=== PATIENT | female | born 1985 | race African-American/Black ===

== ENCOUNTER 2019-05-16 12:06 | Day surgery (SDC) | payer BC ==
[2019-05-15 08:47] VITALS: BMI 21.9
[2019-05-16] MEDS ORDERED: PROPOFOL 20 ML ONE (14:30)
[2019-05-16] MEDS ORDERED: ROCURONIUM BROMIDE 50 MG/5 ML SYRINGE ONE (14:30)
[2019-05-16] MEDS ORDERED: MIDAZOLAM HCL 2 MG/2 ML SINGLE DOSE VIAL ONE (14:30)
--- NOTE | 2019-05-16 14:34 | HP ---
History & Physical Update - History History: No Change - Physical Physical: No Change - Assessment Assessment: No Change - Plan Plan: No Change (Laparoscopic bilateral salpingectomy)
[2019-05-16] MEDS ORDERED: ceFAZolin SODIUM 1 GM VIAL IVPB ONE (14:50)
[2019-05-16] MEDS ORDERED: PROMETHAZINE HCL 25 MG/1 ML VIAL IVPB PRN (14:51)
[2019-05-16] MEDS ORDERED: oxyCODONE HCL 5 MG TABLET PO PRN (14:51)
[2019-05-16] MEDS ORDERED: ONDANSETRON 4 MG/2 ML VIAL IVPUSH PRN (14:51)
[2019-05-16] MEDS ORDERED: BUPIVACAINE HCL/PF 0.5% (5 MG/ML) 30 ML VIAL IJ ONE (14:59)
[2019-05-16] MEDS ORDERED: NEOSTIGMINE METHYLSULFATE 0.5 MG/ML - 10 ML MDV ONE (15:28)
--- NOTE | 2019-05-16 15:30 | PN ---
Progress Note (short form) - Note Progress Note: I assisted Dr. Cuba for the entirety of the case.
--- NOTE | 2019-05-16 15:48 | OP ---
Operative Note - Note: Operative Date: 05/16/19 Pre-Operative Diagnosis: Encounter for starilization Findings: Laparoscopic bilateral salpingectomy Post-Operative Diagnosis: Same as Pre-op Surgeon: Froilan Cuba Running Rigger: Jonathan Pena Anesthesiologist/HAIRSPRING INSPECTOR: Josh Soler Anesthesia: General Specimens Removed: Bilateral Fallopian tubes Estimated Blood Loss (mls): 3 Drains & Tubes with Location: Nelson cath Drains, Volume Out (mls): 50 Blood Volume Replaced (mls): 0 Fluid Volume Replaced (mls): 1,000 Operative Report Dictated: Yes
[2019-05-16 16:56] VITALS: TEMP 98.3
[2019-05-16 18:14] VITALS: BP 104/57; PULSE 64
--- NOTE | 2019-05-17 12:34 | OP ---
DATE OF OPERATION: 05/16/2019 PREOPERATIVE DIAGNOSIS: Sterilization. POSTOPERATIVE DIAGNOSIS: Sterilization. PROCEDURE: Laparoscopic bilateral salpingectomy. SURGEON: Froilan Cuba MD AUTOMATIC HEAD SAWYER: Jonathan Pena MD ANESTHESIOLOGIST: Josh Soler MD ANESTHESIA: General. COMPLICATIONS: None. ESTIMATED BLOOD LOSS: 3 mL. INTRAVENOUS FLUIDS: 1000 mL. PATHOLOGY: Bilateral fallopian tubes. COMPLICATIONS: None. FINDINGS: Examination under anesthesia revealed a small, anteverted uterus with no pelvic or adnexal masses freely mobile within the pelvic cavity. Laparoscopy revealed a normal uterus with normal bilateral fallopian tubes. The left fallopian tube was tightly adherent to the left ovary and wrapped around the left ovary. The right fallopian tube was free and unremarkable. Both ovaries were normal. The visualized fragments of the bowel, liver, and stomach were within normal limits. DESCRIPTION OF PROCEDURE: The patient was met preoperatively. Risks, benefits, and alternatives of surgery were discussed at length. We discussed the risks of infection, bleeding, injury to surrounding or underlying structures, scarring, need for potential further surgery to repair any injuries, pain, etc. The patient verbalized her understanding. We reviewed and discussed the consent form. The patient also verbalized her understanding. The consent was signed, and the patient requested to proceed with the surgery. She was then brought to the OR room with the IV running. The patient was placed on the surgical table in a supine position. The general anesthesia was achieved without difficulty. The patient was then placed in a dorsal lithotomy position using adjustable Alex stirrups. She was examined under anesthesia with the findings as described above. The patient was prepped and draped in the usual sterile fashion. A Nelson catheter was inserted inside the bladder with a sterile technique. The Nelson catheter was left to drain to gravity. A HUMI uterine manipulator was introduced sterilely into the uterine cavity. The surgeons then regloved and proceeded with the operation. A 5-mm umbilical incision was made with a knife. A Veress needle was placed inside the peritoneal cavity. The intraperitoneal placement was confirmed. Afterwards, the pneumoperitoneum was induced with the intra-abdominal pressure limited to 15 mmHg. The Veress needle was then removed. A Visiport trocar was advanced through the umbilical incision under direct visualization and without complications. The survey of the pelvis and abdomen revealed findings as described above. A 5-mm right lower quadrant incision was made with a knife, and a 5-mm trocar was inserted under direct visualization without complications. A left lower quadrant incision was also made with the knife approximately 5 mm in length, and a 5-mm trocar was introduced under direct visualization and without complications. The left fallopian tube was grasped and carefully dissected away from the left ovary using LigaSure. Good hemostasis was maintained. Once this was completed, the left fallopian tube was completely excised to the uterine cornua. The tube was removed and sent to Pathology for evaluation. The right fallopian tube was then grasped and excised using LigaSure with complete hemostasis. Once this was completed, survey of the abdomen and pelvis revealed excellent hemostasis. The instruments were removed from the patient. Sponge, lap, and instrument counts were correct. The Nelson catheter and HUMI catheter were also removed. The patient was returned to supine position. She was transferred to recovery room in stable condition. The abdominal incisions were closed with a 4-0 Biosyn suture with excellent hemostasis and approximation. Mita [id number]
--- NOTE | 2019-05-21 18:50 | PATH ---
Surgical Pathology Report Patient Name: MILO POTTER [facility]. Rec. #: [id number] /Age/Gender: 1985 (Age: 33) / F Account: [id number] Location: [facility] SURGICAL Taken: 05/16/2019 Received: 05/17/2019 Reported: 05/21/2019 Physicians: Froilan uCba M.D. Specimen(s) Received A: RIGHT FALLOPIAN TUBE B: LEFT FALLOPIAN TUBE Clinical History Desires sterilization Final Diagnosis A. FALLOPIAN TUBE, RIGHT, SALPINGECTOMY: UNREMARKABLE FALLOPIAN TUBE (INCLUDING FIMBRIATED END AND FULL LUMINAL PORTION). B. FALLOPIAN TUBE, LEFT, SALPINGECTOMY: UNREMARKABLE FALLOPIAN TUBE (INCLUDING FIMBRIATED END AND FULL LUMINAL PORTION). Electronically Signed Kirsty Shrestha M.D. Gross Description A. Received in formalin labeled "right fallopian tube," is a 6.5 cm in length fimbriated fallopian tube. The outer surface is muñoz purple and smooth. Sectioning reveals an unremarkable lumen. Radio Presenter sections are submitted in 2 cassettes as follows: 1-fimbria; 2-cross sections of fallopian tube. B. Received in formalin labeled "left fallopian tube," are 2 portions of fallopian tube measuring 1.5 and 4.0 cm in length. The shorter portion displays attached fimbria. The outer surfaces are muñoz purple and smooth. Sectioning reveals an unremarkable lumen. Radio Presenter sections are submitted in 2 cassettes as follows: 1-fimbria; 2-cross sections of fallopian tube. 05/18/2019 [facility]05/18/2019
== END 2019-05-16 18:10 | disposition home or self-care (01) ==
LOC: JASU-SURG 12:06
PROVIDERS: ATTEND Obstetrics & Gynecology
PROC: 0U574ZZ Destruction of Bilateral Fallopian Tubes, Percutaneous Endoscopic Approach (ICD-10-PCS; principal; 2019-05-16 14:00)
DX: Z30.2 Encounter for sterilization (principal)
CPT/HCPCS: 84703; 86850; 86900; 86901; 88302-TC; 94760